=== PATIENT | female | born 2000 | race Caucasian/White ===

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

== ENCOUNTER 2021-07-06 12:18 | Emergency (ER) | payer OTHER ==
[~2021-07-06] VITALS: Ht 167.6 cm; Wt 75.0 kg
[2021-07-06 13:02] VITALS: TEMP 98.1
[2021-07-06 13:32] LABS: BASO % 0.6 % (0.0-2.0); EOS # 0.1 K/mm3 (0.0-0.7); EOS % 1.7 % (0-4.0); GRAN # 4.1 K/mm3 (1.4-6.5); GRAN % 64.1 % (42.2-75.2); HEMOGLOBIN 13.7 g/dl (12.0-15.0); LYMPH # 1.6 K/mm3 (1.2-3.4); LYMPH % 25.8 % (20.0-51.0); MEAN CELL VOLUME 88 fl (80.0-95.0); MEAN CORPUSCULAR HEMOGLOBIN 30 pg (26.0-32.0); MEAN CORPUSCULAR HGB CONC 34 g/dl (33.0-37.0); MEAN PLATELET VOLUME 9.8 fl (7.4-10.4); MONO # 0.5 K/mm3 (0.1-0.6); MONO % 7.6 % (1.7-9.3); PLATELET COUNT 274 K/mm3 (130-400); RED BLOOD COUNT 4.54 M/mm3 (4.10-5.30); REDCELL DISTRIBUTION WIDTH-CV 11.9 % (11.5-14.5)
[2021-07-06] MEDS ORDERED: WELLBUTRIN SR150 M1 PO (13:35)
[2021-07-06] MEDS ORDERED: CYMBALTA 60MG60 MG PO (13:35)
[2021-07-06] MEDS ORDERED: AVIANE 0.02 MG-1 TAB PO (13:36)
[2021-07-06 13:50] LABS: ALANINE AMINOTRANSFERASE 16 U/L (0-55); ALBUMIN 3.7 gm/dL (3.5-5.0); ALKALINE PHOSPHATASE 42 U/L (40-150); ANION GAP 8 mmol/L (7-16); AST,SGOT 14 U/L (5-34); BILIRUBIN,TOTAL 0.4 mg/dL (0.2-1.2); BLOOD UREA NITROGEN 9 mg/dL (8-21); CALCIUM 8.9 mg/dL (8.4-10.2); CARBON DIOXIDE 22 mmol/L (22-29); CHLORIDE 108 mmol/L (98-107); CREATININE, serum 0.76 mg/dL (0.57-1.11); GLUCOSE 87 mg/dL (70-99); POTASSIUM 3.9 mmol/L (3.5-4.5); SODIUM 138 mmol/L (136-145); TOTAL PROTEIN 6.8 gm/dL (6.2-8.1)
[2021-07-06 13:56] LABS: TROPONIN-I < 0.010 ng/mL (0.00-0.033)
[2021-07-06 14:51] VITALS: BP 110/76; PULSE 80
== END 2021-07-06 14:55 | disposition home or self-care (01) ==
LOC: COL.ER 12:18
PROVIDERS: Student in an Organized Health Care Education/Training Program
DX: R07.89 Other chest pain (principal); R50.9 Fever, unspecified